=== PATIENT | female | born 1970 | race Caucasian/White ===

== ENCOUNTER 2023-03-18 19:22 | Inpatient (IN) | payer OTHER, SELFPAY ==
--- NOTE | ~2023-03-18 | XR_ITS ---
EXAMINATION: XR chest 1V INDICATION: Neck pain TECHNIQUE: AP view of the chest is obtained. COMPARISON: None available FINDINGS: The lungs are free of acute opacities. No pleural effusion or pneumothorax. The cardiomedia stinal silhouette is normal. IMPRESSION: 1. No acute cardiopulmonary abnormality. Reviewed, dictated and finalized at location F.
--- NOTE | ~2023-03-18 | XR_ITS ---
EXAMINATION:XR cervical spine 4-5V DATE: 03/18/2023 20:20 INDICATION: Neck pain TECHNIQUE: AP, lateral, lateral swimmers and odontoid views of the cervical spine are provided. COMPARISON: None FINDINGS: There are 3 mm of anterolisthesis of C3 on C4 and 2 mm of anterolisthesis of C4 on C5. The odontoid process is intact. No fracture is identified. The vertebral body heights are maintained. The re is at least moderate loss of intervertebral disc space height from C4-5 through C7-T1. There is mu ltilevel severe facet and uncovertebral joint osteoarthritis. There is limited evaluation of the cerv icothoracic junction. Prevertebral soft tissues are normal. IMPRESSION: 1. Moderate to severe cervical spondylosis without acute findings identified. Reviewed, dictated and finalized at location F.
[2023-03-18 19:21] VITALS: BP 167/128; PULSE 96; RESP 24; TEMP 36.4; O2SAT 100
--- NOTE | 2023-03-18 19:31 | ECG_ITS ---
Measurements Intervals [place] Rate: 80 P: 42 AL: 145 QRS: 7 QRSD: 106 T: 25 QT: 373 QTc: 432 Interpretive Statements SINUS RHYTHM NORMAL ECG NO PREVIOUS ECG AVAILABLE FOR COMPARISON Electronically Signed On 03-19-2023 12:39:02 CDT by Romeo Mukherjee M.D.
[2023-03-18] MEDS: HYDROcodone/acetaminophen (*CRX) 5-325 MG TABLET 2 TAB PO (19:48)
[2023-03-18] MEDS: LORazepam INJ (*CRX) 2 MG/ML VIAL 1 MG IV PUSH (19:54)
[2023-03-18 20:03] LABS: Basophils Absolute Auto 0.1 K/mm3 (0.0-0.1); Basophils Percent Auto 0.9 % (0.2-1.2); Eosinophils Absolute Auto 0.3 K/mm3 (0-0.3); Eosinophils Percent Auto 3.9 % (0-4.4); Hematocrit 38.8 % (37.0-47.0); Hemoglobin 12.5 g/dL (12.0-15.0); Immature Granulocyte Absolute 0.02 K/mm3 (0.00-0.031); Immature Granulocyte Percent A 0.2 % (0-0.5); Lymphocytes Absolute Auto 3.16 K/mm3 (0.9-3.2); Lymphocytes Percent Auto 36.7 % (18.3-44.2); Mean Corpuscular HGB Conc 32.2 g/dl (32-36); Mean Corpuscular Hemoglobin 27.5 pg (26-34); Mean Corpuscular Volume 85.3 fl (80-100); Mean Platelet Volume 9.7 fl (7.4-10.4); Monocytes Absolute Auto 0.6 K/mm3 (0.1-0.6); Monocytes Percent Auto 6.7 % (2.6-8.5); Neutrophils Absolute Auto 4.4 K/mm3 (1.3-6.7); Neutrophils Percent Auto 51.6 % (45.5-73.1); Platelet Count Result 270 k/mm3 (150-375); Red Blood Count 4.55 M/mm3 (4.2-5.4); Red Cell Distribution Width 15.4 % (11.5-14.5); White Blood Count 8.6 K/mm3 (4.5-10.0)
[2023-03-18 20:13] LABS: Anion Gap 9 mmol/L (8-16); Blood Urea Nitrogen 11 mg/dL (7-17); Calcium 8.9 mg/dL (8.4-10.2); Carbon Dioxide 27 mmol/L (22-30); Chloride 104 mmol/L (98-107); Estimated CRCL calculation 69 ml/min; Estimated Glomerular Filt Rate > 60; Glucose 101 mg/dL (65-110); INR 0.9; Partial Thromboplastin Time 26.5 SECONDS (22.3-36.8); Potassium 3.7 mmol/L (3.4-5.0); Prothrombin Time 12.8 Seconds (11.1-14.7); Sodium 140 mmol/L (137-145)
[2023-03-18 20:40] VITALS: BP 189/99; PULSE 87; RESP 16; O2SAT 94
[2023-03-18 20:47] VITALS: BP 173/108; PULSE 95; RESP 25; O2SAT 97
[2023-03-18 22:15] LABS: Barbiturate Screen Urine Negative (Negative); Benzodiazepines Screen Urine Negative (Negative)
[2023-03-18 22:16] LABS: Cannabinoid Screen Urine Negative (Negative); Cocaine Screen Urine Negative (Negative); Methadone Screen Urine Negative (Negative); Opiate Screen Urine Negative (Negative); Phencyclidine Screen Urine Negative (Negative)
[2023-03-18 22:42] VITALS: BP 199/117; PULSE 84; RESP 17; O2SAT 98
--- NOTE | 2023-03-18 22:43 | ED.GENADULT ---
HPI - General Adult General Chief complaint: Neck Pain/Injury Stated complaint: Pain Time Seen by Provider: 03/18/23 19:27 History of Present Illness HPI narrative: this is a 52-year-old female presenting ED with a chief complaint of cervical stenosis. Patient has been worked up on an outpatient basis from Dr. Calle. He spoke with 1 of our neurosurgeons . the patient had an outpatient MRI with multiple levels of severe cervical stenosis. The patient has been sent here to be admitted and evaluated by Neurosurgery. This time the patient is complaining of neck and arm pain. She says that she has been having difficulty walking for quite some time. Now she is having difficulty moving her hands. She also has neck and shoulder pain. She denies trauma. no other complaints. Related Data Allergies Allergy/AdvReac Type Severity Reaction Status Date / Time No Known Allergies Allergy Mild Unverified 02/19/15 14:17 [facility] Past Medical History Medical History Bipolar disorder Methamphetamine abuse Family History Family History Mother Cerebrovascular accident Exam Narrative: APPEARANCE: Patient appears anxious and is crying Head: atraumatic. EYES: EOMI, NOSE: Atraumatic NECK: Trachea midline patient is in a C-collar RESPIRATORY: No increased rate of breathing CARDIOVASCULAR: RRR, ABDOMINAL: Non-distended MUSCULOSKELETAl: No obvious deformities NEURO: Alert. Cranial nerves 2-12 grossly intact. strength is intact in the upper lower extremities. SKIN:: Warm, dry. Normal color PSYCHIATRIC: Normal affect Course Vital Signs Vital signs: Vital Signs Temperature 97.6 F 03/18/23 19:21 Pulse Rate 96 03/18/23 19:21 Respiratory Rate 24 H 03/18/23 19:21 Blood Pressure 167/128 H 03/18/23 19:21 Pulse Oximetry 100 03/18/23 19:21 Oxygen Delivery Room Air 03/18/23 19:21 Temperature 97.6 F 03/18/23 19:21 Pulse Rate 95 03/18/23 20:47 Respiratory Rate 25 H 03/18/23 20:47 Blood Pressure 173/108 H 03/18/23 20:47 Pulse Oximetry 97 03/18/23 20:47 Oxygen Delivery Room Air 03/18/23 19:21 Medical Decision Making MDM Narrative Medical decision making narrative: -Presentation: 52-year-old female presenting with neck pain and an outpatient MRI showing severe cervical stenosis. She has been sent to be admitted by Neurosurgery. -DDX includes but is not limited to: Chronic neck pain, cervical stenosis, methamphetamine use -Co-morbidities complicating care: bipolar, meth -Social determinants of health: patient is disabled due to psychiatric illness -External Chart Review: none -Hx from independent Sources: none -Discussion of Management/Consultants: Benjy -hospitalistDr. quintanilla-neurosurgery -Independent interpretation of studies: laboratory studies normal. Dx tests considered but not ordered: None -Procedures: -Interventions: -Shared decision making / Disposition: admitted. -RX Vital Signs Vital Signs: Vital Signs Temperature 97.6 F 03/18/23 19:21 Pulse Rate 96 03/18/23 19:21 Respiratory Rate 24 H 03/18/23 19:21 Blood Pressure 167/128 H 03/18/23 19:21 Pulse Oximetry 100 03/18/23 19:21 Oxygen Delivery Room Air 03/18/23 19:21 Temperature 97.6 F 03/18/23 19:21 Pulse Rate 95 03/18/23 20:47 Respiratory Rate 25 H 03/18/23 20:47 Blood Pressure 173/108 H 03/18/23 20:47 Pulse Oximetry 97 03/18/23 20:47 Oxygen Delivery Room Air 03/18/23 19:21 Lab Data 03/18/23 19:56 03/18/23 19:56 Labs: Lab Results 03/18/23 03/18/23 Range/Units 19:56 21:44 WBC 8.6 (4.5-10.0) K/mm3 RBC 4.55 (4.2-5.4) M/mm3 Hgb 12.5 (12.0-15.0) g/dL Hct 38.8 (37.0-47.0) % MCV 85.3 (80-100) fl MCH 27.5 (26-34) pg MCHC 32.2 (32-36) g/dl RDW 15.4 H (11.5-14.5
[2023-03-18 23:01] LABS: Amphetamine Screen Urine Positive (Negative)
--- NOTE | 2023-03-18 23:25 | PM.IMHP ---
H&P: HPI History of Present Illness Date/Time: 03/19/23 00:25 Chief Complaint: Cervical stenosis Narrative: 52-year-old female with past medical history of bipolar disorder, anxiety, chronic pain and cervical stenosis who presented to [facility] for outpatient MRI. MRI demonstrated severe cervical stenosis and the patient's outpatient orthopedic surgeon Dr. Flores contacted Dr. Paulino from Neurosurgery regarding the patient's case. Patient reports that she has been having about 6-8 weeks of worsening neck pain and numbness in her fingers. She denies any weakness of her hands. She has been having difficulty walking since proximally 2018 but is worsened in the last 6 months or so. She ambulates with a walker. She denies any acute trauma or injury of her neck. But she reports she has chronic spinal stenosis of her lower spine with bone spurs. She has [id number] osteoarthritis of her right hip per her report. She does have a history of chronic methamphetamine abuse in snorts methamphetamines every couple of days. She reported that she started using meth to help manage her pain but states that the mass has not helped her pain. She last used meth 5 hours before coming to the ER. She denies any other illicit substance use. She does smoke a pack of cigarettes per day and has done so since she was a teenager. She was having difficulty with chronic constipation but has not had issues with chronic constipation in the last 6 months to a year. She denies any bowel or bladder incontinence. She denies any dysuria hematochezia or melena. She does have frequent abdominal cramping and bloating. She denies history of GI bleed. She does have a history of previously treated hepatitis C. she reports that her worse the amount of pain right now is in her right hip. She did arrived to the hospital with a disc of her MRI findings but I was unable to get the disc open on the computer that I can access. In the ER the patient received [place] and lorazepam. The patient reports that these did not help with her symptoms. The patient is noted to me having pressured speech and is sweating a. She states that she sweats all the time even when she does not use meth. She reports that she has been unable to bathe for the last 2 weeks due to her symptoms. She has lived with a friend for about a year. She has 3 children but 2 of them were raised by the other parent. She has 1 daughter who is 32. Her brother has disowned her. Her parents are . She does not have much in the way of social support. She denies any other illicit substance use. She denies alcohol use. Review of Systems Review of Systems: 12 systems were reviewed with pertinent positives and negatives per HPI. Except as documented in the HPI, all other systems were reviewed and are negative. [facility] Past Medical History Medical History (Updated 03/19/23 @ 01:03 by Nevin Burelson DO) Bipolar disorder Continuous tobacco abuse Degenerative disc disease Hepatitis C Previously treated Infected decubitus ulcer (~2017) Kidney stones Methamphetamine abuse Pulmonary embolism Resulting in cardiac arrest in 2017 Surgical History Surgical History (Updated 03/19/23 @ 00:39 by Nevin Burleson DO) H/O section X2 Hx of cholecystectomy Family History Family History (Updated 03/19/23 @ 00:50 by Nevin Burleson DO) Mother , at age 62 Cerebrovascular accident Lung cancer Father , He in his mid 40's GI bleed Sibling Lung cancer, Onset Age: 50 Social History Social History (Updated 03/19/23 @ 00:51 by Nevin Burleson DO) Social History: She has been on disability for her bipolar disorder since 2018. She lives with a friend since 2021. She had 3 children but only raised 1 daughter who is now 32 years old. She is estranged from her only living brother. She has smoked a pack of cigarettes per day since she
[2023-03-18 23:35] VITALS: BP 185/108; PULSE 93; RESP 15; TEMP 36.9; O2SAT 98
[2023-03-18 23:54] VITALS: BP 174/93; PULSE 95; RESP 22; TEMP 36.3; O2SAT 99
[2023-03-19 00:46] VITALS: BMI 32.9
--- NOTE | 2023-03-19 00:50 | PC.NURSE ---
This patient, Elsy Wesley, was admitted to Medical Room 347-. Patient/family oriented to hospital policies and general routines including ID bracelet, bed and alarms, visiting hours, pain management, procedures, bathroom and other care routines, personal items, smoking policy, room service/diet, and visiting hours. Information on how to activate the Rapid Response Team has been discussed. Patient/Family are encouraged to report perceived risks to care and to ask questions if they do not understand what they are told or what they should do.
[2023-03-19] MEDS: QUEtiapine FUMARATE XR 200 MG TAB.ER.24H 400 MG PO (01:05)
[2023-03-19] MEDS: hydrOXYzine pamoate 25 MG CAPSULE PO (01:05)
[2023-03-19] MEDS: HYDROcodone/acetaminophen (*CRX) 10-325 MG TABLET 1 TAB PO ×3 (02:07→16:13)
[2023-03-19] MEDS: LORazepam (*CRX) 1 MG TABLET PO ×3 (04:57→16:14)
[2023-03-19] MEDS: HEPARIN SODIUM 5,000 UNITS/ML VIAL 5000 UNITS SUB-Q (04:59)
[2023-03-19 05:01] VITALS: BP 164/93; PULSE 85; RESP 18; TEMP 36.5; O2SAT 99
[2023-03-19] MEDS: buPROPion HCL XL (24 HR) 150 MG TABCR PO (08:50)
[2023-03-19 09:33] LABS: Hematocrit 35.8 % (37.0-47.0); Hemoglobin 11.5 g/dL (12.0-15.0); Mean Corpuscular HGB Conc 32.1 g/dl (32-36); Mean Corpuscular Hemoglobin 27.1 pg (26-34); Mean Corpuscular Volume 84.4 fl (80-100); Mean Platelet Volume 9.4 fl (7.4-10.4); Platelet Count Result 234 k/mm3 (150-375); Red Blood Count 4.24 M/mm3 (4.2-5.4); Red Cell Distribution Width 15.3 % (11.5-14.5); White Blood Count 7.3 K/mm3 (4.5-10.0)
--- NOTE | 2023-03-19 11:05 | PM.IMPN ---
Progress Note: A&P Assessment and Plan (1) Cervical stenosis of spinal canal: Code(s): M48.02 - Spinal stenosis, cervical region Status: Acute Assessment and Plan: Patient has severe cervical stenosis. Neurosurgery has been consulted. [place] 10/325 has been ordered for pain. Cervical collar has been placed since before the patient arrived to the ER. Neurosurgery recommending transfer to [facility] for surgery due to more Anesthesiology and ICU support which may be needed due to patient's chronic methamphetamine abuse. Called over to [facility] and Dr. Perez (hospitalist) has accepted the patient for transfer for Dr. Kearns to perform surgery. (2) Methamphetamine intoxication: Code(s): F15.929 - Other stimulant use, unspecified with intoxication, unspecified Status: Acute Assessment and Plan: Patient is acutely intoxicated with methamphetamines. Urine drug screen confirm that the patient has not been using any narcotics S supported by her report. Will provide Ativan as needed for psychomotor agitation. (3) Bipolar disorder: Qualifiers: Active/Remission status: currently active Current bipolar episode type: manic Current episode severity: moderate Qualified Code(s): F31.12 - Bipolar disorder, current episode manic without psychotic features, moderate Code(s): F31.9 - Bipolar disorder, unspecified Status: Acute Assessment and Plan: Patient has bipolar appears to be in active phase. Will resume the patient's home antipsychotics and still lytics and antidepressants. Patient denies any suicidal homicidal ideation. (4) Continuous tobacco abuse: Code(s): Z72.0 - Tobacco use Status: Acute Assessment and Plan: The patient is not interested in tobacco cessation education. She does want a nicotine patch while she is hospitalized since she cannot smoke. Plan Patient does have a prior history of DVTs resulting in cardiac arrest per her report (2017). DVT prophylaxis with heparin just in case it is decided that the patient needs more urgent surgical intervention. Subjective Date/time seen: 03/19/23 11:05 Interval history: Patient doing well sitting up in bed with hard neck brace on. Patient continued to have chronic right hip pain that has caused her to become and mobile as well as numbness and tingling radiating down the bilateral arms. Neurosurgery recommending transfer to a higher acuity care hospital due to patient's methamphetamine abuse. She could require more anesthesiology/ ICU support. Called over to [facility] and they have accepted the patient for transfer. Review of Systems Review of Systems: All systems reviewed & are unremarkable except as noted in HPI and below Exam Narrative: GENERAL: Comfortable, no acute distress HENMT: moist mucous membranes EYES: EOM intact b/l NECK: no lymphadenopathy RESPIRATORY: clear to auscultation CARDIO: RRR GI: soft, nontender, bowel sounds present SKIN: no rashes EXTREMITIES: no edema, redness or tenderness; Bilateral upper extremity configuration manager strength 4/5 Objective Data Vital Signs Vital Signs: Vital Signs - 24 hr 03/18/23 19:21 03/18/23 20:40 03/18/23 20:47 Temperature 97.6 F Pulse Rate 96 87 95 Respiratory Rate 24 H 16 25 H Blood Pressure 167/128 H 189/99 H 173/108 H Pulse Oximetry 100 94 97 Oxygen Delivery Room Air 03/18/23 22:42 03/18/23 23:35 03/18/23 23:54 Temperature 98.5 F 97.4 F L Pulse Rate 84 93 95 Respiratory Rate 17 15 22 H Blood Pressure 199/117 H 185/108 H 174/93 H Pulse Oximetry 98 98 99 Oxygen Delivery 03/19/23 00:41 03/19/23 05:01 03/19/23 08:00 Temperature 97.7 F Pulse Rate 85 Respiratory Rate 18 Blood Pressure 164/93 H Pulse Oximetry 99 Oxygen Delivery Room Air Room Air Intake/Output Intake/Output: Intake & Output 03/16/23 03/17/23 03/18/23 03/19/23 23:59 23:59 23:5
[2023-03-19 11:15] LABS: Alanine Aminotransferase 22 U/L (6-35); Albumin Level 3.8 g/dL (3.5-5.1); Alkaline Phosphatase 87 U/L (38-126); Anion Gap 6 mmol/L (8-16); Aspartate Amino Transferase 29 U/L (14-36); Bilirubin,Total 0.5 mg/dL (0.2-1.3); Blood Urea Nitrogen 10 mg/dL (7-17); Calcium 8.6 mg/dL (8.4-10.2); Carbon Dioxide 24 mmol/L (22-30); Chloride 105 mmol/L (98-107); Estimated CRCL calculation 65 ml/min; Estimated Glomerular Filt Rate > 60; Glucose 136 mg/dL (65-110); Potassium 3.6 mmol/L (3.4-5.0); Sodium 135 mmol/L (137-145)
--- NOTE | 2023-03-19 12:29 | WPDNEUROSGCN ---
Assessment and Plan Assessment and plan (1) Cervical myelopathy: Code(s): G95.9 - Disease of spinal cord, unspecified Status: Acute (2) Methamphetamine intoxication: Code(s): F15.929 - Other stimulant use, unspecified with intoxication, unspecified Status: Acute (3) Cervical stenosis of spinal canal: Code(s): M48.02 - Spinal stenosis, cervical region Status: Acute Plan Ms. Wesley is a 52-year-old female with history of hepatitis-C, bipolar disorder, and methamphetamine use who has had 6 months of progressive walking difficulty and balance problems as well as 4-6 weeks of pain and numbness in her upper extremities, difficulty gripping objects, and urinary retention who was found to have significant cervical stenosis on an MRI cervical spine performed as an outpatient. She was sent to the ER on the advice of her orthopedic surgeon who ordered the imaging. On physical exam, she is frankly myelopathic. We have not yet been able to upload her outside imaging, but I was able to see a photograph taken of the sagittal MRI that shows significant stenosis at C3-4 in particular with T2 cord signal change. There also appears to be stenosis at C4-5 and C5-6. She ultimately will need surgery for this; however, because of her meth use yesterday, she will need to be off of this for at least 1 week to be cleared from an anesthesia standpoint. I spoke with 1 of the anesthesiologists [place] this morning who thinks that this may be too medically complex to be treated at [place]. I have spoken with the showcase trimmer and her hospitalist about transferring to an alternative facility. She is been accepted at [facility] for transfer this weekend. I will work on getting her scheduled for surgery but I am awaiting the imaging to be uploaded to decide on the form of surgery. I suspect this will most likely be in the form of a posterior cervical decompression and fusion. We will likely also need cardiac and anesthesia clearance once she arrives at [facility]. She has been taking a baby aspirin up until this point which will need to be held for at least 1 week as well prior to surgery. I discussed with her the significance of her pathology and the importance that she remains drug-free so that she can undergo surgery. I also discussed with her the importance of tobacco cessation to allow for the best chances of healing and bony fusion. She expressed understanding of this to me. I will await for her transfer to [facility]. Consult date: 03/19/23 HPI: Elsy Wesley is a 52 year old female with history of bipolar disorder, PE, Hep C, meth use who presented to the ER yesterday at the suggestion of her orthopedic doctor, Dr. Calle, for findings on her MRI cervical spine that was performed as an outpatient. For the last 6 months or so, she has had progressive difficulty with walking and balance to the point of requiring a walker the last 2 weeks. For the last 4-6 weeks, she reports radicular pain and numbness in her arms and hands. She has had weakness of her hands and has been dropping objects for this same amount of time. She also reports urinary retention. She had seen Dr. Calle for right hip pain; he was concerned for cervical myelopathy and sent her for MRI cervical spine. Of note, she had a cardiac arrest in 2017 which she states was related to pulmonary emboli. She only takes an aspirin daily at this point. She uses meth on a regular basis which she snorts. She denies IV drug use. She smokes 1 PPD since she was a teenager. She currently lives with a friend in [place]. She is on disability because of her mental health issues. Review of Systems Review of Systems: All systems reviewed & are unremarkable except as noted in HPI and below [facility] Past Medical History Medical History (Updated 03/19/23 @ 12:37 by Marisol Kearns MD) Bipolar disorder Continuous tobacco abuse Degenerative disc disease Hepatitis C Previously
--- NOTE | 2023-03-19 14:02 | PC.NURSE ---
Call made to Dr. Kearns to inform her of transfer to [facility]. Bed is available and will be sent today.
[2023-03-19 14:50] VITALS: O2SAT 98
--- NOTE | 2023-03-19 15:19 | PM.TDS ---
Transfer Discharge Sum: Prov Provider Date of admission: 03/18/23 22:49 Primary care physician: NON DESTRUCTIVE EVALUATION TECHNICIAN PHYSICIAN Admitting clinician: Nevin Burleson DO Consults: 03/19/23 08:31 Consult to Physician Routine Comment: Consulting Provider: Marisol Kearns greens picker/MD group to consult: Dr. Kearns saw pt this am. 03/19/23 Reason for consultation: servere cervical stenosis Has provider been notified: Yes DS: Admitting Diagnosis Discharge Date 03/19/23 Admitting Diagnosis Severe cervical stenosis DS: Discharge Diagnosis Discharge Diagnosis (1) Cervical stenosis of spinal canal: Code(s): M48.02 - Spinal stenosis, cervical region Status: Acute Assessment and Plan: Patient has severe cervical stenosis. Neurosurgery has been consulted. [place] 10/325 has been ordered for pain. Cervical collar has been placed since before the patient arrived to the ER. Neurosurgery recommending transfer to [facility] for surgery due to more Anesthesiology and ICU support which may be needed due to patient's chronic methamphetamine abuse. Called over to [facility] and Dr. Perez (hospitalist) has accepted the patient for transfer for Dr. Kearns to perform surgery. (2) Methamphetamine intoxication: Code(s): F15.929 - Other stimulant use, unspecified with intoxication, unspecified Status: Acute Assessment and Plan: Patient is acutely intoxicated with methamphetamines. Urine drug screen confirm that the patient has not been using any narcotics S supported by her report. Will provide Ativan as needed for psychomotor agitation. (3) Bipolar disorder: Qualifiers: Active/Remission status: currently active Current bipolar episode type: manic Current episode severity: moderate Qualified Code(s): F31.12 - Bipolar disorder, current episode manic without psychotic features, moderate Code(s): F31.9 - Bipolar disorder, unspecified Status: Acute Assessment and Plan: Patient has bipolar appears to be in active phase. Will resume the patient's home antipsychotics and still lytics and antidepressants. Patient denies any suicidal homicidal ideation. (4) Continuous tobacco abuse: Code(s): Z72.0 - Tobacco use Status: Acute Assessment and Plan: The patient is not interested in tobacco cessation education. She does want a nicotine patch while she is hospitalized since she cannot smoke. Plan Patient does have a prior history of DVTs resulting in cardiac arrest per her report (2017). DVT prophylaxis with heparin just in case it is decided that the patient needs more urgent surgical intervention. Transfer Discharge Sum: Med Medications Active and Home Medications: Home Medications aspirin 81 mg tablet,delayed release 81 mg PO DAILY 03/19/23 [History Confirmed 03/19/23] bupropion HCl 150 mg 24 hr tablet, extended release (Wellbutrin XL) 150 mg PO DAILY 03/19/23 [History Confirmed 03/19/23] fluvoxamine 150 mg capsule,extended release 24 hr 150 mg PO HS 03/19/23 [History Confirmed 03/19/23] hydroxyzine pamoate 25 mg capsule 25 mg PO HS 03/19/23 [History Confirmed 03/19/23] quetiapine 400 mg tablet,extended release 24 hr (Seroquel XR) 400 mg PO HS 03/19/23 [History Confirmed 03/19/23] Active Medications Hydrocodone Bitart/Acetaminophen (Hydrocodone/Acetaminophen (*Crx) 10-325 Mg Tablet) 1 tab PO Q6H PRN PRN Reason: Pain Rated 7-10 Last Admin: 03/19/23 08:55 Dose: 1 tab Bupropion HCl (Bupropion Hcl Xl (24 Hr) 150 Mg Tabcr) 150 mg PO DAILY [facility] Last Admin: 03/19/23 08:50 Dose: 150 mg Heparin Sodium (Porcine) (Heparin Sodium 5,000 Units/Ml Vial) 5,000 units SUB-Q Q8HR [facility] Last Admin: 03/19/23 04:59 Dose: 5,000 units Hydroxyzine Pamoate (Hydroxyzine Pamoate 25 Mg Capsule) 25 mg PO HS [facility] Last Admin: 03/19/23 01:05 Dose: 25 mg Lorazepam (Lorazepam (*Crx) 1 Mg Tablet) 1 mg PO Q4H PRN PRN Reason: Anxie
--- NOTE | 2023-03-19 17:19 | PC.NURSE ---
Report given to Marlee at [facility]. Pt to room 2406. [facility].
== END 2023-03-19 17:22 | disposition short-term general hospital (02) | DRG 347 ==
LOC: ANHED 22:48 → ANH3MED 23:24
PROVIDERS: Admitting Provider Internal Medicine; Emergency Provider Emergency Medicine; Visit Provider Internal Medicine Critical Care Medicine
DX: M48.02 Spinal stenosis, cervical region (principal); F15.929 Other stimulant use, unspecified with intoxication, unspecified; F31.9 Bipolar disorder, unspecified; F41.9 Anxiety disorder, unspecified; F17.210 Nicotine dependence, cigarettes, uncomplicated; G89.29 Other chronic pain; M16.11 Unilateral primary osteoarthritis, right hip; Z86.711 Personal history of pulmonary embolism; Z90.49 Acquired absence of other specified parts of digestive tract; Z79.82 Long term (current) use of aspirin; Z86.19 Personal history of other infectious and parasitic diseases
CPT/HCPCS: 36415; 71045; 72050; 80048; 80053; 80307; 85025; 85027; 85610; 85730; 93005; 96374; 99285; A9270; J1644; J2060

== ENCOUNTER 2023-07-30 14:12 | Outpatient (CLI) | payer OTHER, SELFPAY ==
--- NOTE | ~2023-07-30 | XR_ITS ---
EXAMINATION:XR_CERV2-3V_CR DATE: 07/30/2023 14:36 INDICATION: Neck pain TECHNIQUE: AP, lateral, lateral swimmers and odontoid views of the cervical spine are provided. COMPARISON: 03/18/2023 FINDINGS: There are changes of interval laminectomy and posterior fusion from C3 through C6. There ar e 3 mm of anterolisthesis of C3 on C4 and 2 mm of anterolisthesis of C4 on C5. The odontoid process i s intact. No fracture is identified. The vertebral body heights are maintained. Moderate loss of inte rvertebral disc space height is again noted from C4-5 through C7-T1. Small degenerative osteophytes p roject from the anterior endplates of multiple vertebral bodies. There is multilevel severe facet and uncovertebral joint osteoarthritis. Prevertebral soft tissues are normal. IMPRESSION: 1. Changes of interval laminectomy and posterior fusion from C3 through C6 without acute osseous abno rmality. Moderate to severe cervical spondylosis. Reviewed, dictated and finalized at location F. IMPRESSION: 1. Changes of interval laminectomy and posterior fusion from C3 through C6 with out acute osseous abnormality. Moderate to severe cervical spondylosis.
== END 2023-07-30 14:13 | disposition home or self-care (01) ==
PROVIDERS: PCP Internal Medicine; Visit Provider Neurological Surgery
DX: G95.9 Disease of spinal cord, unspecified (principal); M48.02 Spinal stenosis, cervical region; Z98.1 Arthrodesis status
CPT/HCPCS: 72040

== ENCOUNTER 2023-08-03 11:27 | Emergency (ER) | payer OTHER, SELFPAY ==
--- NOTE | ~2023-08-03 | CT_ITS ---
Non-contrast Head CT History: Head injury Technique: Axial non-contrast imaging of the brain was performed. Dose reduction technique was used on this scan by utilizing automated exposure control and iterative reconstruction technique. The dose -length product (DLP) was 605.33 mGy-cm. Findings: There is no evidence of intracranial hemorrhage, mass lesion, or acute infarct. Brain par enchyma appears normal. The ventricles and subarachnoid spaces are normal in size. The calvarium ap pears normal. The visualized paranasal sinuses and mastoid air cells are clear. Impression: No significant abnormality seen. Reviewed, dictated and finalized at location . Impression: No significant abnormality seen.
--- NOTE | ~2023-08-03 | CT_ITS ---
Noncontrast CT scan of the cervical spine Technique: Multiple contiguous axial [address] images of the cervical spine were obtained and rec onstructed in 2D sagittal and coronal planes on the acquisition scanner. Dose reduction technique was used on this scan by utilizing automated exposure control, adjustment of the mA and/or kV according to patient size. The dose-length product (DLP) was 605.33 mGy-cm. Clinical History: Pain Findings: No fracture or subluxation evident. There is mild reversal of the normal cervical lordosis. There is posterior fusion hardware extending from C3 through C6, bilateral rods and transpedicular s crews present. There is posterior decompression from C3 through C6. There is probable bilateral neural foraminal narrowing at C2-C3, with prominent facet arthropathy/hyp ertrophy. There is probable mild bilateral neural foraminal narrowing at C3-C4 with facet hypertrophy . There is bilateral neural foraminal narrowing at C4-C5 and C5-C6, with bilateral facet hypertrophy. There is bilateral neural foraminal narrowing at C6-C7, with facet hypertrophy. No prevertebral soft tissue swelling. Impression: No fracture or subluxation of the cervical spine. Posterior fusion and decompression from C3 through C6, as detailed above. Multilevel neural foraminal narrowing throughout the cervical spine. Reviewed, dictated and finalized at [facility]. Impression: No fracture or subluxation of the cervical spine. Posterior fusion and decompression from C3 through C6, as detailed above. Multilevel neural foraminal narrowing throughout the cervical spine.
[2023-08-03 11:31] VITALS: BP 139/87; PULSE 75; RESP 20; TEMP 36.5; O2SAT 100
--- NOTE | 2023-08-03 12:55 | ED.FALL ---
HPI - Fall General Chief Complaint: Fall <Violeta Quezada PA-C - Last Filed: 08/03/23 18:21> Stated Complaint: fall <Violeta Quezada PA-C - Last Filed: 08/03/23 18:21> Time Seen by Provider: 08/03/23 13:08 <MARIAM Painting Last Filed: 08/03/23 18:21> Source: patient <MARIAM Painting Last Filed: 08/03/23 18:21> Mode of arrival: wheelchair <MARIAM Painting Last Filed: 08/03/23 18:21> Limitations: no limitations <Violeta Quezada PA-C - Last Filed: 08/03/23 18:21> History of Present Illness HPI Narrative: This is a 53-year-old female that presents to the emergency department after head injury today. Reports she was trying to get out of bed, reports she was still little sleepy. She accidentally fell and hit her head on the bedpost. Reports that she has had a headache and some neck pain. She did not lose consciousness. Denies visual changes, vomiting, numbness, or weakness. <MARIAM Painting Last Filed: 08/03/23 18:21> Related Data Home Medications: Home Medications Medication Instructions Recorded Confirmed aspirin 81 mg tablet,delayed 81 mg PO DAILY 03/19/23 03/19/23 release acetaminophen 650 mg 650 mg PO BID 07/29/23 tablet,extended release bisacodyl 5 mg tablet,delayed 10 mg PO DAILY 07/29/23 release bupropion HCl 150 mg tablet,12 hr 150 mg PO DAILY 07/29/23 sustained-release clonazepam 0.5 mg tablet 0.5 mg PO BID 07/29/23 cyclobenzaprine 10 mg tablet 10 mg PO TID PRN 07/29/23 docusate sodium 100 mg capsule 100 mg PO BID 07/29/23 (Colace) fluvoxamine 50 mg tablet 150 mg PO DAILY 07/29/23 hydrocodone 5 mg-acetaminophen 325 1 tablet PO BID 07/29/23 mg tablet lidocaine 5 % topical patch 1 patch topical DAILY 07/29/23 naproxen 250 mg tablet 250 mg PO Q12H 10/19/23 polyethylene glycol 3350 17 17 g PO DAILY PRN 07/29/23 gram/dose oral powder pregabalin 75 mg capsule 75 mg PO BID 07/29/23 quetiapine 100 mg tablet 200 mg PO BID 07/29/23 trazodone 50 mg tablet 25 mg PO QHS PRN 07/29/23 <Violeta Quezada PA-C - Last Filed: 08/03/23 18:21> Allergies/Adverse Reactions: Allergies Allergy/AdvReac Type Severity Reaction Status Date / Time No Known Allergies Allergy Mild Verified 07/29/23 15:21 <Violeta Quezada PA-C - Last Filed: 08/03/23 18:21> Review of Systems Review of Systems: CONSTITUTIONAL: Denies fever EYES: Denies visual changes GASTROINTESTINAL: Denies vomiting MUSCULOSKELETAL: Reports joint pain, and myalgia. NEUROLOGIC: Reports headache. Denies numbness, or weakness. <MARIAM Painting Last Filed: 08/03/23 18:21> All systems reviewed & are unremarkable except as noted in HPI and below <Violeta Quezada PA-C - Last Filed: 08/03/23 18:21> [facility] Past Medical History Medical History: Medical History Bipolar disorder Continuous tobacco abuse Degenerative disc disease Hepatitis C Previously treated Infected decubitus ulcer (~2017) Kidney stones Methamphetamine abuse Pulmonary embolism Resulting in cardiac arrest in 2017 <Violeta Quezada PA-C - Last Filed: 08/03/23 18:21> Surgical History Surgical History: Surgical History H/O section X2 Hx of cholecystectomy <MARIAM Painting Last Filed: 08/03/23 18:21> Family History Family History: Family History Mother , at age 62 Cerebrovascular accident Lung cancer Father , He in his mid 40's GI bleed Sibling Lung cancer, Onset Age: 50 <MARIAM Painting Last Filed: 08/03/23 18:21> Social History Social History: Social History Social History: She has been on disability for her bipolar disorder [facility]
[2023-08-03 13:55] VITALS: O2SAT 96
[2023-08-03 13:56] VITALS: BP 132/94; O2SAT 96
[2023-08-03 14:00] VITALS: BP 126/86; O2SAT 95
[2023-08-03 14:01] VITALS: O2SAT 96
[2023-08-03 14:15] VITALS: BP 135/80; PULSE 78; RESP 16; O2SAT 95
[2023-08-03] MEDS: ACETAMINOPHEN 500 MG TABLET 1000 MG PO (14:15)
[2023-08-03] MEDS: CYCLOBENZAPRINE HCL 10 MG TABLET PO (14:18)
== END 2023-08-03 14:54 | disposition home or self-care (01) ==
PROVIDERS: Emergency Provider Emergency Medicine; PCP Internal Medicine
DX: S09.90XA Unspecified injury of head, initial encounter (principal); S16.1XXA Strain of muscle, fascia and tendon at neck level, initial encounter; F17.210 Nicotine dependence, cigarettes, uncomplicated; F31.9 Bipolar disorder, unspecified; Z86.711 Personal history of pulmonary embolism; W06.XXXA Fall from bed, initial encounter
CPT/HCPCS: 70450; 72125; 99284; A9270

== ENCOUNTER 2023-12-06 10:05 | Outpatient (CLI) | payer OTHER, SELFPAY ==
--- NOTE | ~2023-12-06 | XR_ITS ---
EXAMINATION:XR_[id number]_CR DATE: 12/06/2023 10:21 INDICATION: Neck pain TECHNIQUE: AP, lateral, and odontoid views of the cervical spine are provided. COMPARISON: 07/30/2023 FINDINGS: Again noted are changes of laminectomy and posterior fusion from C3 through C6. There are 3 mm of unchanged anterolisthesis of C3 on C4 and 2 mm of unchanged anterolisthesis of C4 on C5. The o dontoid process is intact. No fracture is identified. The vertebral body heights are maintained. Ther e is moderate loss of intervertebral disc space height from C4-5 through C7-T1. Small degenerative os teophytes project from the anterior endplates of multiple vertebral bodies. There is multilevel sever e facet and uncovertebral joint osteoarthritis. Prevertebral soft tissues are normal. IMPRESSION: 1. Stable changes of posterior fusion and laminectomy from C3 through C6 and stable moderate to sever e cervical spondylosis. No acute findings. Reviewed, dictated and finalized at location B. [employer] IMPRESSION: 1. Stable changes of posterior fusion and laminectomy from C3 through C6 and st able moderate to severe cervical spondylosis. No acute findings.
== END 2023-12-06 10:06 | disposition home or self-care (01) ==
LOC: ANHIMG 10:06
PROVIDERS: PCP Internal Medicine; Visit Provider Neurological Surgery
DX: G95.9 Disease of spinal cord, unspecified (principal); M48.02 Spinal stenosis, cervical region; Z98.1 Arthrodesis status
CPT/HCPCS: 72040

== ENCOUNTER 2024-09-26 19:06 | Emergency (ER) | payer OTHER, SELFPAY ==
--- NOTE | ~2024-09-26 | XR_ITS ---
EXAMINATION: XR chest 1V DATE: 09/26/2024 22:27 INDICATION: Pneumonia. TECHNIQUE: A single frontal view of the chest was obtained. COMPARISON: Chest single view 03/18/2023 FINDINGS: There is no pneumonia, pleural effusion, or pneumothorax. The heart size is normal. There a re changes of posterior fusion procedure in cervical spine. IMPRESSION: 1. No acute cardiopulmonary disease. Reviewed, dictated and finalized at location A. [employer]
[2024-09-26 19:12] VITALS: BP 133/98; PULSE 92; RESP 15; TEMP 37.1; O2SAT 99
[2024-09-26 21:38] VITALS: BP 137/99; PULSE 88; RESP 16; TEMP 37.1; O2SAT 97
[2024-09-26 22:18] LABS: Influenza A QL RT-PCR Negative (Negative); Influenza B QL RT-PCR Negative (Negative); RSV RNA, RT-PCR Negative (Negative); SARS-CoV-2 RNA PCR Negative (Negative)
--- NOTE | 2024-09-26 22:19 | ED_ITS ---
HPI - URI/Sore Throat General Chief Complaint: Upper Respiratory Infection Stated Complaint: chills, flushed Time Seen by Provider: 09/26/24 22:01 Source: patient Mode of arrival: ambulatory Limitations: no limitations History of Present Illness HPI Narrative: This is a 54-year-old female with PMH of bipolar, meth abuse, hep C, PE who presents to the ED via EMS from senior living for chief complaint of chills and feeling flushed for the past day. Patient denies any other symptoms. Denies abdominal pain, nausea, vomiting, diarrhea, chest pain, shortness of breath, cough, sore throat, congestion, ear pain, syncope, lightheadedness. She would like to rule out pneumonia States she has right hip pain which is chronic. She receives Delphia every 6 hours as needed for osteoarthritis. Related Data Home Medications ?Medication ?Instructions ?Recorded ?Confirmed ?Last Taken ?Type aspirin 81 mg tablet,delayed 81 mg PO DAILY 03/19/23 03/19/23 Unknown History release acetaminophen 650 mg 650 mg PO BID 07/29/23 Unknown History tablet,extended release bisacodyl 5 mg tablet,delayed 10 mg PO DAILY 07/29/23 Unknown History release bupropion HCl 150 mg tablet,12 hr 150 mg PO DAILY 07/29/23 Unknown History sustained-release clonazepam 0.5 mg tablet 0.5 mg PO BID 07/29/23 Unknown History cyclobenzaprine 10 mg tablet 10 mg PO TID PRN 07/29/23 Unknown History docusate sodium 100 mg capsule 100 mg PO BID 07/29/23 Unknown History (Colace) fluvoxamine 50 mg tablet 150 mg PO DAILY 07/29/23 Unknown History hydrocodone 5 mg-acetaminophen 325 1 tablet PO BID 07/29/23 Unknown History mg tablet lidocaine 5 % topical patch 1 patch topical DAILY 07/29/23 Unknown History naproxen 250 mg tablet 250 mg PO Q12H 07/29/23 Unknown History polyethylene glycol 3350 17 17 g PO DAILY PRN 07/29/23 Unknown History gram/dose oral powder pregabalin 75 mg capsule 75 mg PO BID 07/29/23 Unknown History quetiapine 100 mg tablet 200 mg PO BID 07/29/23 Unknown History trazodone 50 mg tablet 25 mg PO QHS PRN 07/29/23 Unknown History Allergies Allergy/AdvReac Type Severity Reaction Status Date / Time No Known Allergies Allergy Mild Verified 09/26/24 19:08 Review of Systems Review of Systems: All systems as dictated in [facility] Past Medical History Medical History Bipolar disorder Continuous tobacco abuse Degenerative disc disease Hepatitis C Previously treated Infected decubitus ulcer (~2017) Kidney stones Methamphetamine abuse Pulmonary embolism Resulting in cardiac arrest in 2017 Surgical History Surgical History H/O section X2 Hx of cholecystectomy Family History Family History Mother , at age 62 Cerebrovascular accident Lung cancer Father , He in his mid 40's GI bleed Sibling Lung cancer, Onset Age: 50 Social History Social History Social History: She has been on disability for her bipolar disorder since 2018. She lives with a friend since 2021. She had 3 children but only raised 1 daughter who is now 32 years old. She is estranged from her only living brother. She has smoked a pack of cigarettes per day since she was 18. She denies any alcohol use. She does snore at methamphetamines every couple of days. She denies any narcotic abuse. Code status: Full code She does not have advanced directives in place. Her daughter would be her surrogate decision maker. Smoking packs per day: 1 Smoking cigarettes per day: 20.0 Years smoked: 35 Smoking pack-years: 35.00 Smoking status: Current every day smoker Alcohol intake: never Substance use: current Substance use type: methamphetamine Do You Feel Safe in your Home?: Yes Lack of Transportation: No Lack of Food: Never True Current Housing: I Have Housing Concerned About Future Housing: No Difficulty Paying Gas/Electric Bills: No Difficulty Paying for Meds: No Currently Unemployed: No Education: High School Diploma/GED Difficulty w/ Childcare or Family Care: No Spiritual care concerns: No Exam Narrative: GENERAL: Well-appearing, well-nourished, and in no acute distress. HEAD: Normocephalic, atraumatic. EYES: PERRLA and EOMI. ENT: Nares clear, no rhinorrhea or epistaxis. Mucous membranes moist. Oropharynx without tonsillar hypertrophy exudate or other lesions. NECK: Supple. No adenopathy or masses. CHEST: No respiratory distress. Clear to auscultation. No wheezes rales or rhonchi HEART: Regular rate and rhythm. No murmur heard. Normal peripheral pulses. ABDOMEN: Soft, nontender, nondistended, normal active bowel sounds. MSK: Normal range of motion. No edema. SKIN: Warm, dry, no rash. NEURO: Alert and oriented x4. No focal deficits. PSYCH: Normal mood and affect. Course Vital Signs Vital signs: Vital Signs Temperature 98.8 F 09/26/24 19:12 Pulse Rate 92 09/26/24 19:12 Respiratory Rate 15 09/26/24 19:12 Blood Pressure 133/98 H 09/26/24 19:12 Pulse Oximetry 99 09/26/24 19:12 Oxygen Delivery Room Air 09/26/24 19:12 Temperature 98.7 F 09/26/24 21:38 Pulse Rate 88 09/26/24 21:38 Respiratory Rate 16 09/26/24 21:38 Blood Pressure 137/99 H 09/26/24 21:38 Pulse Oximetry 97 09/26/24 21:38 Oxygen Delivery Room Air 09/26/24 21:38 MDM - URI/Sore Throat MDM Narrative Medical decision making narrative: This is a 54-year-old female who presents to the ED for subjective fevers and chills. She wants to rule out pneumonia. Vitals are normal. Exam is benign. Chest x-ray is negative. Viral swabs are negative. Patient was given her Delphia for her chronic hip pain here. Patient will be discharged in stable condition. Supportive measures discussed and return precautions given. Patient is understanding and agreeable with plan for discharge with PCP follow-up. Lab Data Labs: Lab Results 09/26/24 Range/Units 21:32 Influenza A (RT-PCR) Negative (Negative) Influenza B (RT-PCR) Negative (Negative) RSV (RT-PCR) Negative (Negative) SARS-CoV-2 RNA (RT-PCR) Negative (Negative) Discharge Plan Discharge Clinical Impression: Chills Patient Disposition: Home, Self-Care Condition: Stable Instructions: Antibiotic Form Additional Instructions: Your exam and imaging today are reassuring overall. This is probably a viral illness and should pass on its own. Please take the Motrin for pain and fever control. If you have any new or worsening symptoms please return to the ER for further evaluation. Patient Language: Mozambican Prescriptions: No Action pregabalin 75 mg capsule 75 mg PO BID bisacodyl 5 mg tablet,delayed release (DR/EC) 10 mg PO DAILY bupropion HCl 150 mg tablet sustained-release 12 hr 150 mg PO DAILY clonazepam 0.5 mg tablet 0.5 mg PO BID docusate sodium [Colace] 100 mg capsule 100 mg PO BID cyclobenzaprine 10 mg tablet 10 mg PO TID PRN lidocaine 5 % adhesive patch,medicated 1 patch topical DAILY Rx Instructions: leave on most painful area for up to 12 hrs fluvoxamine 50 mg tablet 150 mg PO DAILY quetiapine 100 mg tablet 200 mg PO BID naproxen 250 mg tablet 250 mg PO Q12H trazodone 50 mg tablet 25 mg PO QHS PRN hydrocodone-acetaminophen 5-325 mg tablet 1 tablet PO BID acetaminophen 650 mg tablet extended release 650 mg PO BID polyethylene glycol 3350 17 gram/dose powder 17 g PO DAILY PRN aspirin [Adult Aspirin EC Low Strength] 81 mg Tablet,Delayed Release (Dr/Ec) 81 mg PO DAILY Follow-up/Referrals: Dajuan,MD Mustapha [Primary Care Provider] - Time of Disposition: 22:34
[2024-09-26] MEDS: HYDROcodone/acetaminophen (*CRX) 5-325 MG TABLET 1 TAB PO (22:29)
== END 2024-09-26 22:55 ==
PROVIDERS: Emergency Medicine; Emergency Provider Physician Assistant; PCP Internal Medicine
DX: R68.83 Chills (without fever) (principal); Z20.822 Contact with and (suspected) exposure to COVID-19; F31.9 Bipolar disorder, unspecified; F17.210 Nicotine dependence, cigarettes, uncomplicated; Z86.19 Personal history of other infectious and parasitic diseases; Z87.442 Personal history of urinary calculi; Z86.711 Personal history of pulmonary embolism; Z90.49 Acquired absence of other specified parts of digestive tract; Z79.82 Long term (current) use of aspirin; Z79.899 Other long term (current) drug therapy
CPT/HCPCS: 71045; 87637; 99283; A9270

== ENCOUNTER 2025-05-23 02:23 | Day surgery (SDC) | payer OTHER, SELFPAY ==
[2025-04-12 16:38] VITALS: BMI 35.4
--- OUTSIDE RECORDS SUMMARY | 2025-04-25 03:02 | XMS_ITS | Patient Health Record ---
[facility] [place] Address [address] [address] Care Team Providers Care Tax Staff Accountant Name Role Phone Aida Howe Primary Care Provider Reason For Referral No Information Medications Medication SIG (Take, Route, Frequency, Duration) Notes Start Date End Date Status Melatonin 3 MG 1 capsule in the evening as needed with food Orally Once a day; Duration: 30 days 10/08/2017 Not-Taking Gabapentin 100 1 capsule Orally Thr ee times a day; Duration: 30 Active Ibuprofen 600 MG 1 tablet with food o r milk Orally every 6 hours as needed; Duration: 30 days 12/07/2017 Not-Taking Voltaren 50 MG 1 tablet with food o r milk Orally every 8 hours as needed; Duration: 10 days 10/24/2018 Not-Taking PriLOSEC 40 MG 1 capsule Orally Onc e a day; Duration: 30 days 06/02/2018 Not-Takin g Ibuprofen 600 MG 1 tablet with food o r milk Orally every 6 hours as needed; Duration: 30 days 04/26/2018 Not-Taking Ibuprofen 600 1 tablet with food o r milk Orally every 6 hours as needed; Duration: 22 Not-Taking SEROquel 100 MG 1 tablet Orally Once a day Not-Taking Symbicort 160-4.5 MCG/ACT 2 puffs Inhala tion Twice a day; Duration: 30 days 12/07/2017 Not-Taking Levaquin 500 MG 1 tablet Orally Once a day; Duration: 10 day(s) 09/23/2017 Not-Taking Bactrim DS 800-160 MG 1 tablet Orally Tw ice a day; Duration: 7 days 09/26/2020 Active Protonix 40 MG 1 tablet Orally Once a day; Duration: 30 day(s) 10/08/2017 Not-Taking Levaquin 750 MG 1 tablet Orally Once a day; Duration: 10 day(s) 09/21/2017 Not-Taking Cyclobenzaprine HCl 10 MG 1 tablet Oral every 8 hours as needed; Duration: 30 days Active traMADol HCl 50 MG 1 tablet Orally ever y 6 hrs as needed; Duration: 14 days 09/21/2017 Not-Taking Bactrim DS 800-160 MG 1 tablet Orally Tw ice a day; Duration: 10 day(s) 10/08/2017 Not-Taking HYDROcodone-Acetaminophen 10-325 MG (Schedule II Drug) TK 1 T PO Q 8 H PRN Oral; Duration: 28 Active AirDuo RespiClick 232/14 232-14 MCG/ACT 1 puff Inhalation Twice a day; Duration: 30 days 04/27/2018 Not-Taking AirDuo RespiClick 232/14 232-14 MCG/ACT 1 puff Inhalation Twice a day; Duration: 30 days 04/26/2018 Not-Taking DULoxetine HCl 60 MG TK ONE C PO ONCE D Oral; Duration: 30 Active KlonoPIN 1 MG 1 tablet Orally Once a day Not-Taking Augmentin 875-125 MG 1 tablet Orally mahendra ry 12 hrs; Duration: 10 day(s) 09/30/2020 Active Vitamin D 1000 UNIT 1 tablet Orally Once a day; Duration: 30 day(s) 09/10/2020 Active Gabapentin 100 MG 1 capsule Orally Thr ee times a day; Duration: 30 days Not-Taking dilTIAZem HCl ER Coated Beads 180 mg 1 capsule Oral Once a day; Duration: 30 days Active Macrobid 100 MG 1 capsule Orally mahendra ry 12 hours; Duration: 5 days 08/30/2020 Active ALPRAZolam 0.5 MG (Schedule IV Drug) T K 1 T PO UP TO BID ONLY IF NEEDED FOR PANIC. NEVER USE WITHIN 6 HOURS OF ADDERALL OR NORCO. PLEASE LIMIT USE Oral; Duration: 30 Active Amphetamine-Dextroampheta mine 15 MG (Schedule II Drug) TK 1 T PO TID. NEVER USE WITHIN 6 HOURS OF ALPRAZOLAM/XANAX. Oral; Duration: 30 Active buPROPion HCl ER (XL) 150 MG TK 1 T PO QAM FOR ADHD Oral; Duration: 30 Active QUEtiapine Fumarate 200 MG TK 1/2 T PO HS Oral; Duration: 30 Active Protonix 40 MG 1 tablet Orally Once a day; Duration: 30 day(s) 05/27/2018 Not-Taking Ketorolac Tromethamine 60 MG/2ML 2 mL Intramuscular one time; Duration: 1 dose 12/07/2017 Not-Takin g Doxycycline Monohydrate 100 MG 1 tablet Orally every 12 hrs; Duration: 10 days 12/07/2017 Not-Taking Albuterol 90 MCG/ACT 2 puffs Inhalation every 4-6 hours as needed; Duration: 16 Active Zantac 150 mg 1 tablet Orally Twic e a day; Duration: 30 day(s) 11/09/2017 Not-Taking Albuterol Sulfate 108 (90 Base) MCG/ACT 2 puffs - as covered by insurance Inhalation every 6 hrs as needed; Duration: 30 days 12/07/2017 Not-Taking Ventolin HFA 108 (90 Base) MCG/ACT 2 puffs Inhalation every 6 hours as needed; Duration: 25 Not-Taking ProAir RespiClick 108 (90 Base) MCG/ACT 2 puffs as needed Inhalation every 6 hrs Not-Takin g Xanax 2 MG 1 tablet Orally Twic e a day Not-Taking Iron 325 (65 Fe) MG 1 tablet Orally Once a day; Duration: 30 days 04/28/2018 Not-Takin g Diclofenac Potassium 50 MG 1 tablet Orally three times daily as needed; Duration: 30 Not-Taking Lisinopril 20 MG TAKE 1 TABLET BY WIL TH DAILY; Duration: 30 Active Bactroban 2 % 1 application to affected area Externally Three times a day; Duration: 10 days 12/07/2017 Not-Taking Bactrim DS 800-160 MG 1 tablet Orally Tw ice a day; Duration: 10 day(s) 04/26/2018 Not-Taking Adderall 15 mg 1 tablet in the morn ing Orally three times daily Not-Taking Immunizations Vaccine Route Administration Date Status Comme nts Non VFC Boostrix IM Intramuscular 04/12/2019 Administered Patient tolerated procedure well. Social History Tobacco Use: Social History Observation Description Date Details (start date - stop date) Current Smoker NA - NA Tobacco Use/Smoking Question Answer Notes Are you a current smoker How often do you smoke cigarettes? every day How many cigarettes a day do you smoke? 11-20 How soon after you wake up do you smoke your fir st cigarette? within 5 minutes Alcohol Screen (Audit-C) Question Answer Notes Did you have a drink contain ing alcohol in the past year? Yes How often did you have a dri nk containing alcohol in the past year? Monthly or less (1 point) How many drinks did you have on a typical day when you were drinking in the past year? 3 or 4 drinks (1 point) How often did you have 6 or more drinks on one occasion in the past year? Less than monthly (1 point) Points 3 Interpretation Positive Tobacco use other than smoking: Question Answer Notes Are you an other tobacco user? No DAST Question Answer Notes Total Score: 0 Interpretation: No problems reported PRAPARE Question Answer Notes What is your current housing situation? I do not have housing (staying with others, in a hotel, in a assisted, living outside on the street, on a beach, or in a park) Are you worried about losing your housing? Yes What is the highest level of school that you have finished? High school diploma or GED What is your current work situation? Unemployed and seeking work Problems Problem Type SNOMED Code ICD Code Onset Dates Problem Status W/U Status Risk Notes Problem Body mass index 30.00 to 34.99 (706906529708279) Body mass index (BMI) 31.0-31.9, adult (Z68.31) Active confirmed Problem Essential hypertension (46477296) Essential hypertension (I10) Active confirmed Problem COPD - Chronic obstructive pulmonary disease (81594500) COPD (chronic obstructive pulmonary disease) (J44.9) Active confirmed Problem Vitamin D deficiency (11721874) Vitamin D deficiency (E55.9) Active confirmed Problem Anxiety (06217261) Anxiety (F41.9) Active confi rmed Problem Coronary artery disease (74627712) Coronary artery disease (I25.10) Active confirmed Problem Tobacco dependence (90467769) Tobacco dependence (F17.200) Active confirmed Problem Chronic pain syndrome (567924777) Chronic pain disorder (G89.4) Active confirmed Problem Gastroesophageal reflux disease (484426726) Gastroesophageal reflux disease, esophagitis presence not specified (K21.9) Active confirmed Problem COPD - Chronic obstructive pulmonary disease (13651469) Chronic obstructive pulmonary disease, unspecified COPD type (J44.9) Active confirmed Problem History of non-ST segment elevation myocardial infarction (999774496) History of heart attack (I25.2) Active confirmed Problem Insomnia (961769931) Insomnia, unspecified type (G47.00) Active confirmed Problem Urinary incontinence (330960551) Urinary incontinence, unspecified type (R32) Active confirmed Problem Depressive disorder (disorder) (64791660) Depression, unspecified depression type (F32.9) Active confirmed Problem Sciatica (28673193) Acute bilate ral low back pain with sciatica, sciatica laterality unspecified (M54.40) Active confirmed Plan Of Treatment No Information Insurance Providers Payer Name Payer Address Payer Phone Subscriber Number Group Number Insured Name Patient Relationship to Insured Coverage Start Date Coverage End Date [facility] [address] [place] [address] [id number] Lupillo Elsy Self - patient is the insured 7 [facility] [employer]FS [address] [place] [address] [id number] Lupillo Elsy Self - patient is the insured 8 [facility] Nonbillable [address] [place] [address] [id number] Wesley Elsy Self - patient is the insured 8 [facility] [employer] [facility] [address] [place] [address] [id number] Wesley Elsy Self - patient is the insured 8 Medications Administered Medication Instructions Date of Administration Dosage Notes Ketorolac Tromethamine 15mg Injection 09/21/2017 2 mL Ketorolac Tromethamine 15mg Injection 12/07/2017 Medical (General) History Medical History History ICD Code anxiety depression bipolar degenerative disc disease spinal stenosis Hep C Possible Surgical History Surgery Date(Month/Year) tubal 2 c-sections gallbladder
--- OUTSIDE RECORDS SUMMARY | 2025-04-25 03:02 | XMS_ITS | Patient Health Record ---
Author Organization [facility] Address [address] [place] [address] Care Team Providers Care Band Scroll Saw Operator Name Role Phone Venita Jacome Primary Care Provider Allergies No Known Allergies Reason For Referral No Information Medications Medication SIG (Take, Route, Frequency, Duration) Notes Start Date End Date Status SEROquel XR 400 MG 1 tablet in the even ing Orally Once a day; Duration: 30 days 01/19/2023 Active buPROPion HCl ER (XL) 150 MG 1 tablet in the morning Orally Once a day; Duration: 30 days Active Vistaril 25 MG 1 capsule at bedtime as needed Orally 1 to 2 caps as needed; Duration: 30 days Active SEROquel 400 MG 1 tablet at bedtime Orally Once a day; Duration: 30 day(s) Active fluvoxaMINE Maleate 100 MG 1.5 tablet at bedtime Orally Once a day; Duration: 30 days Active Social History Tobacco Use: Social History Observation Description Date Details (start date - stop date) Current Smoker NA - NA Dont use, Tobacco Use/Smoking Question Answer Notes Are you a current every day smoker Additional Findings: Tobacco User Moderate cigar ette smoker (10-19 cigs/day) Problems Problem Type SNOMED Code ICD Code Onset Dates Problem Status W/U Status Risk Notes Problem Bipolar disorder (99747726) Bipolar disorder, unspecified (F31.9) Active confirmed Problem Attention deficit hyperactivity disorder, 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, predominantly inattentive type (F90.0) Active confirmed Problem Generalized anxiety disorder (01924233) Anxiety, generalized (F41.1) Active confirmed Plan Of Treatment No Information Insurance Providers Payer Name Payer Address Payer Phone Subscriber Number Group Number Insured Name Patient Relationship to Insured Coverage Start Date Coverage End Date [facility] Attn Claims Department [address] [place] [address] [id number] Elsy Wesley Self - patient is the insured 0 [facility] [address] [place] [address] [phone] [id number] Elsy Wesley Self - patient is the insured 3 Medical (General) History Surgical History Surgery Date(Month/Year) c section x2 Hospitalization History Reason Date(Month/Year) heart attack 2017 child x3
--- NOTE | 2025-04-25 09:30 | SUR.PREOP ---
Elsy was canceled today because she did not do the required bowel prep. This patient lives in a facility ([facility] (formerly [facility]3]).
[2025-05-18 15:04] VITALS: BMI 32.2
--- OUTSIDE RECORDS SUMMARY | 2025-05-23 02:43 | XMS_ITS | Patient Health Record ---
[facility] Address [address] [address] Care Team Providers Care Tax Auditor Name Role Phone Aida Howe Primary Care [...] with others, in a hotel, in a group home, living outside on the street, on a [...] Problem Body mass index 30.00 to 34.99 (472419289775755) Body mass index (BMI) 31.0-31.9, adult (Z68.31) Active confirmed Problem Essential hypertension (38231795) Essential hypertension (I10) Active confirmed Problem COPD - Chronic obstructive pulmonary disease (56946030) COPD (chronic obstructive pulmonary disease) (J44.9) Active confirmed Problem Vitamin D deficiency (77315935) Vitamin D deficiency (E55.9) Active confirmed Problem Anxiety (33947453) Anxiety (F41.9) Active confi rmed Problem Coronary artery disease (26722775) Coronary artery disease (I25.10) Active confirmed Problem Tobacco dependence (02668853) Tobacco dependence (F17.200) Active confirmed Problem Chronic pain syndrome (472335388) Chronic pain disorder (G89.4) Active confirmed Problem Gastroesophageal reflux disease (189087181) Gastroesophageal reflux disease, esophagitis presence not specified (K21.9) Active confirmed Problem COPD - Chronic obstructive pulmonary disease (12624171) Chronic obstructive pulmonary disease, unspecified COPD type (J44.9) Active confirmed Problem History of non-ST segment elevation myocardial infarction (889412102) History of heart attack (I25.2) Active confirmed Problem Insomnia (190680783) Insomnia, unspecified type (G47.00) Active confirmed Problem Urinary incontinence (370152046) Urinary incontinence, unspecified type (R32) Active confirmed Problem Depressive disorder (disorder) (70802536) Depression, unspecified depression type (F32.9) Active confirmed Problem Sciatica (77045336) Acute bilate ral low back pain with sciatica, sciatica laterality unspecified (M54.40) Active confirmed Plan Of Treatment No Information Insurance Providers Payer Name Payer Address Payer Phone Subscriber Number Group Number Insured Name Patient Relationship to Insured Coverage Start Date Coverage End Date [facility] [address] [place] [address] [id number] Lupillo Elsy Self - patient is the insured 7 [facility] FFS [address] [place] [address] [id number] Lupillo Elsy Self - patient is the insured 8 [facility] Nonbillable [address] [place] [address] [id number] Wesley Elsy Self - patient is the insured 8 [facility] BARN MANAGER [facility] [address] [place] [address] [id number] Wesley Elsy Self - patient is the insured 8 Medications Administered Medication Instructions Date of Administration Dosage Notes Ketorolac Tromethamine 15mg Injection 09/21/2017 2 mL Ketorolac Tromethamine 15mg Injection 12/07/2017 Medical (General) History Medical History History ICD Code anxiety depression bipolar degenerative disc disease spinal stenosis Hep C Possible Surgical History Surgery Date(Month/Year) gallbladder 2 c-sections tubal
--- OUTSIDE RECORDS SUMMARY | 2025-05-23 02:43 | XMS_ITS | Patient Health Record ---
Author Organization [facility] Address [address] [place] [address] Care Team Providers Care Tile Layer Helper Name Role Phone Venita Jacome Primary Care Provider [phone] Allergies No Known Allergies Reason For Referral [...] W/U Status Risk Notes Problem Bipolar disorder (22381361) Bipolar disorder, unspecified (F31.9) Active confirmed Problem Attention deficit hyperactivity disorder, predominantly inattentive type (01222739) ADHD, predominantly inattentive type (F90.0) Active confirmed Problem Generalized anxiety disorder (19167227) Anxiety, generalized (F41.1) Active confirmed Plan Of Treatment No Information Insurance Providers Payer Name Payer Address Payer Phone Subscriber Number Group Number Insured Name Patient Relationship to Insured Coverage Start Date Coverage End Date [facility] Attn Claims Department [address] [place] [address] [id number] Elsy Wesley Self - patient is the insured 0 [facility] [address] [place] [address] [phone] [id number] Elsy Wesley Self - patient is the insured 3 Medical (General) History Surgical History Surgery Date(Month/Year) c section x2 Hospitalization History Reason Date(Month/Year) heart attack 2017 child x3
[2025-05-23 11:17] VITALS: BP 149/96; PULSE 90; RESP 20; TEMP 36.6; O2SAT 97
--- NOTE | 2025-05-23 11:20 | SUR.PREOP ---
The patient missed to collection container while trying to collect urine test. Dr. Storm aware and okay to skip the urine test at this time.
--- NOTE | 2025-05-23 11:31 | WPDANESEPPF ---
Anes - Initial Pre Proc Eval Procedure: Operation Date: 05/23/25 13:30 Proposed Procedures p EGD & Screening Colonoscopy - Arvind Burns MD Date/Time: 05/23/25 11:31 Surgeon: Arvind Burns MD Pre Op Diagnosis: Dysphagia, unspecified, neoplasm screening Patient Data Age: 55 Gender: F Height: 1.63 m Weight: 88.9 kg Last Vital Signs Temp 36.6 C 05/23/25 11:17 Pulse 90 05/23/25 11:17 Resp 20 05/23/25 11:17 BP 149/96 H 05/23/25 11:17 Pulse Ox 97 05/23/25 11:17 O2 Del Method Room Air 05/23/25 11:17 Allergies Allergy/AdvReac Type Severity Reaction Status Date / Time No Known Allergies Allergy Mild Verified 04/12/25 16:37 Home Medications ?Medication ?Instructions ?Recorded ?Confirmed ?Type aspirin 81 mg tablet,delayed 81 mg PO DAILY 03/19/23 05/23/25 History release acetaminophen 650 mg 650 mg PO Q8H PRN pain 07/29/23 05/18/25 History tablet,extended release bisacodyl 5 mg tablet,delayed 10 mg PO DAILY 07/29/23 05/23/25 History release bupropion HCl 150 mg tablet,12 hr 150 mg PO DAILY 07/29/23 04/12/25 History sustained-release clonazepam 0.5 mg tablet 0.5 mg PO BID 07/29/23 04/12/25 History cyclobenzaprine 10 mg tablet 10 mg PO TID PRN muscle spasm 07/29/23 04/12/25 History docusate sodium 100 mg capsule 100 mg PO BID 07/29/23 05/23/25 History (Colace) fluvoxamine 50 mg tablet 50 mg PO BID 07/29/23 05/23/25 History hydrocodone 5 mg-acetaminophen 325 1 tablet PO Q6H PRN pain 07/29/23 04/12/25 History mg tablet lidocaine 5 % topical patch 1 patch topical DAILY 07/29/23 05/23/25 History naproxen 250 mg tablet 250 mg PO Q12H 07/29/23 04/12/25 History polyethylene glycol 3350 17 17 g PO DAILY PRN constipation 07/29/23 04/12/25 History gram/dose oral powder pregabalin 75 mg capsule 75 mg PO BID 07/29/23 04/12/25 History quetiapine 100 mg tablet 200 mg PO BID 07/29/23 04/12/25 History trazodone 50 mg tablet 75 mg PO QHS 07/29/23 05/23/25 History bupropion HCl 300 mg 24 hr tablet, 300 mg PO DAILY 04/12/25 05/23/25 History extended release buspirone 10 mg tablet 10 mg PO BID 04/12/25 05/23/25 History magnesium citrate (Citroma oral 296 ml PO DAILY PRN constipation 04/12/25 04/12/25 History solution) magnesium hydroxide 400 mg/5 mL 30 ml PO HS PRN constipation 04/12/25 04/12/25 History oral suspension (Milk of Magnesia) meclizine 25 mg tablet 25 mg PO ONCE PRN dizziness 04/12/25 04/12/25 History melatonin 3 mg capsule 3 mg PO HS 04/12/25 05/23/25 History meloxicam 7.5 mg tablet 7.5 mg PO BID 04/12/25 05/23/25 History multivitamin with minerals (DAILY 1 tablet PO DAILY 04/12/25 05/23/25 History VITAMIN FORMULA-MINERALS tablet) nystatin 100,000 unit/gram topical 1 applic topical BID 04/12/25 05/23/25 History powder ondansetron 4 mg disintegrating 4 mg PO Q8H PRN nausea and vomiting 04/12/25 04/12/25 History tablet quetiapine 400 mg tablet 400 mg PO HS 04/12/25 04/12/25 History sodium phosphates 19 gram-7 118 ml RECTAL DAILY PRN 04/12/25 04/12/25 History gram/118 mL enema (Fleet Enema) constipation Patient hx anesthesia problems: none Family hx anesthesia problems: none Results Review: All pre-operative results and documents have been reviewed as part of the pre-operative evaluation. [facility] Past Medical History Medical History Infected decubitus ulcer (~2017) Pulmonary embolism Resulting in cardiac arrest in 2017 Degenerative disc disease Kidney stones Hepatitis C Previously treated Continuous tobacco abuse Methamphetamine abuse Bipolar disorder Surgical History Surgical History Hx of cholecystectomy H/O section X2 Family History Family History Mother , at age 62 Cerebrovascular accident Lung cancer Father , He in his mid 40's GI bleed Sibling Lung cancer, Onset Age: 50 Social History Social History Social History: She has been on disability for her bipolar disorder since 2017. She lives with a friend since 2021. She had 3 children but only raised 1 daughter who is now 32 years old. She is estranged from her only living brother. She has smoked a pack of cigarettes per day since she was 18. She denies any alcohol use. She does snore at methamphetamines every couple of days. She denies any narcotic abuse. Code status: Full code She does not have advanced directives in place. Her daughter would be her surrogate decision maker. Smoking packs per day: 1 Smoking cigarettes per day: 20.0 Years smoked: 35 Smoking pack-years: 35.00 Smoking status: Current every day smoker Alcohol intake: never Substance use: current Substance use type: methamphetamine Do You Feel Safe in your Home?: Yes Lack of Transportation: No Lack of Food: Never True Current Housing: I Have Housing Concerned About Future Housing: No Difficulty Paying Gas/Electric Bills: No Difficulty Paying for Meds: No Currently Unemployed: No Education: High School Diploma/GED Difficulty w/ Childcare or Family Care: No Living arrangements: fpc Spiritual care concerns: No Anes - Eval Final PreProcedure Day of Procedure 05/23/25 11:31 Patient weight: obese Heart: regular rate and rhythm Lungs: clear to auscultation Airway: Mallampati scale class 1 Neurological: alert and oriented Last oral intake: >/= 8 hours ASA classification: III Emergent: no Anesthetic plan: proceed Anesthesia type and monitoring: general GIVS and standard monitoring Results Review: All pre-operative results and documents have been reviewed as part of the pre-operative evaluation. Informed Consent: The patient's anesthetic plan and its attendant risks and benefits were discussed with the patient/family/POA. Questions were solicited and answers provided to the satisfaction of the patient/family/POA.
[2025-05-23] MEDS: LACTATED RINGERS 1,000 ML 150 ML IV CONT (11:39)
[2025-05-23] MEDS: SIMETHICONE ORAL SUSPENSION 20 MG/0.3 ML 30 ML BOTTLE 1.8 ML PO (11:40)
--- NOTE | 2025-05-23 11:46 | P.HP_ITS ---
H&P: HPI History of Present Illness Date/Time: 05/23/25 11:46 Chief Complaint: Dysphagia- family history of colon cancer-history of colon polyps Narrative: this patient has been suffering from intermittent dysphagia especially with bread and steak for several months. She never had an EGD. There is no unintentional weight loss or heartburn. In addition he is also being referred for colonoscopy due to a family history of colorectal cancer. Her father had when was in his 30s. The patient had a few colonoscopies, the last 1 more than 5 years ago with the presence of polyps. Review of Systems Review of Systems: All systems reviewed & are unremarkable except as noted in HPI and below PMFSH Past Medical History Medical History Infected decubitus ulcer (~2017) Pulmonary embolism Resulting in cardiac arrest in 2017 Degenerative disc disease Kidney stones Hepatitis C Previously treated Continuous tobacco abuse Methamphetamine abuse Bipolar disorder Surgical History Surgical History Hx of cholecystectomy H/O section X2 Family History Family History Mother , at age 62 Cerebrovascular accident Lung cancer Father , He in his mid 40's GI bleed Sibling Lung cancer, Onset Age: 50 Social History Social History Social History: She has been on disability for her bipolar disorder since 2018. She lives with a friend since 2021. She had 3 children but only raised 1 daughter who is now 32 years old. She is estranged from her only living brother. She has smoked a pack of cigarettes per day since she was 18. She denies any alcohol use. She does snore at methamphetamines every couple of days. She denies any narcotic abuse. Code status: Full code She does not have advanced directives in place. Her daughter would be her surrogate decision maker. Smoking packs per day: 1 Smoking cigarettes per day: 20.0 Years smoked: 35 Smoking pack-years: 35.00 Smoking status: Current every day smoker Alcohol intake: never Substance use: current Substance use type: methamphetamine Do You Feel Safe in your Home?: Yes Lack of Transportation: No Lack of Food: Never True Current Housing: I Have Housing Concerned About Future Housing: No Difficulty Paying Gas/Electric Bills: No Difficulty Paying for Meds: No Currently Unemployed: No Education: High School Diploma/GED Difficulty w/ Childcare or Family Care: No Living arrangements: longterm Spiritual care concerns: No Meds Home Medications and Allergies Home Medications ?Medication ?Instructions ?Recorded ?Confirmed ?Type aspirin 81 mg tablet,delayed 81 mg PO DAILY 03/19/23 05/23/25 History release acetaminophen 650 mg 650 mg PO Q8H PRN pain 07/29/23 05/18/25 History tablet,extended release bisacodyl 5 mg tablet,delayed 10 mg PO DAILY 07/29/23 05/23/25 History release bupropion HCl 150 mg tablet,12 hr 150 mg PO DAILY 07/29/23 04/12/25 History sustained-release clonazepam 0.5 mg tablet 0.5 mg PO BID 07/29/23 04/12/25 History cyclobenzaprine 10 mg tablet 10 mg PO TID PRN muscle spasm 07/29/23 04/12/25 History docusate sodium 100 mg capsule 100 mg PO BID 07/29/23 05/23/25 History (Colace) fluvoxamine 50 mg tablet 50 mg PO BID 07/29/23 05/23/25 History hydrocodone 5 mg-acetaminophen 325 1 tablet PO Q6H PRN pain 07/29/23 04/12/25 History mg tablet lidocaine 5 % topical patch 1 patch topical DAILY 07/29/23 05/23/25 History naproxen 250 mg tablet 250 mg PO Q12H 07/29/23 04/12/25 History polyethylene glycol 3350 17 17 g PO DAILY PRN constipation 07/29/23 04/12/25 History gram/dose oral powder pregabalin 75 mg capsule 75 mg PO BID 07/29/23 04/12/25 History quetiapine 100 mg tablet 200 mg PO BID 07/29/23 04/12/25 History trazodone 50 mg tablet 75 mg PO QHS 07/29/23 05/23/25 History bupropion HCl 300 mg 24 hr tablet, 300 mg PO DAILY 04/12/25 05/23/25 History extended release buspirone 10 mg tablet 10 mg PO BID 04/12/25 05/23/25 History magnesium citrate (Citroma oral 296 ml PO DAILY PRN constipation 04/12/25 04/12/25 History solution) magnesium hydroxide 400 mg/5 mL 30 ml PO HS PRN constipation 04/12/25 04/12/25 History oral suspension (Milk of Magnesia) meclizine 25 mg tablet 25 mg PO ONCE PRN dizziness 04/12/25 04/12/25 History melatonin 3 mg capsule 3 mg PO HS 04/12/25 05/23/25 History meloxicam 7.5 mg tablet 7.5 mg PO BID 04/12/25 05/23/25 History multivitamin with minerals (DAILY 1 tablet PO DAILY 04/12/25 05/23/25 History VITAMIN FORMULA-MINERALS tablet) nystatin 100,000 unit/gram topical 1 applic topical BID 04/12/25 05/23/25 History powder ondansetron 4 mg disintegrating 4 mg PO Q8H PRN nausea and vomiting 04/12/25 04/12/25 History tablet quetiapine 400 mg tablet 400 mg PO HS 04/12/25 04/12/25 History sodium phosphates 19 gram-7 118 ml RECTAL DAILY PRN 04/12/25 04/12/25 History gram/118 mL enema (Fleet Enema) constipation Allergies Allergy/AdvReac Type Severity Reaction Status Date / Time No Known Allergies Allergy Mild Verified 04/12/25 16:37 Vital Signs Vital Signs - 24 hr 05/23/25 11:17 Temperature 97.8 F Pulse Rate 90 Respiratory Rate 20 Blood Pressure 149/96 H Pulse Oximetry 97 Oxygen Delivery Room Air Exam Const: General: cooperative and healthy appearing Resp: Effort & Inspection: normal respiratory effort and able to speak in complete sentences Auscultation: clear to auscultation bilaterally Cardio: Rate: regular rate Rhythm: regular rhythm GI: Inspection: normal to inspection GI Palp: No No hepatosplenomegaly present Auscultation: normal bowel sounds Rectal Exam: deferred Skin: General skin exam: normal color Psych: Appearance: grossly normal Mental Status: mental status grossly normal Assessment and Plan Assessment and plan (1) Dysphagia: Code(s): R13.10 - Dysphagia, unspecified Status: Acute Assessment and Plan: The patient is deemed a good candidate for the procedure. Consent signed. Will proceed. (2) Family history of colorectal cancer: Code(s): Z80.0 - Family history of malignant neoplasm of digestive organs Status: Acute
--- NOTE | 2025-05-23 12:05 | S_PTH ---
PATIENT: Elsy Wesley LOC: [facility] U#:[id number] AGE/SX: 55/F ROOM: RE05/23/[address]: Arvind Burns MD : 1970 BED: DIS: 05/23/2025 SPEC #: [id number] RECD: 05/23/25 13:30 STATUS: BRAYAN REAaliyah #: [id number] KAYLAH: 05/23/25 12:[address]: Arvind Burns DEPT: [facility] Surgical RECD BY: Angelica Abarca Tissues: A - Gastric Biopsy B - Gastric Biopsy C - Gastric Biopsy D - Esophageal Biopsy E - Colon Polypectomy Procedures: Hematoxylin and Eosin Stain Gross and Microscopic Level 4
--- NOTE | 2025-05-23 12:15 | SUR.OPER ---
EGD: end 1203, COLON: start 1212
[2025-05-23 12:32] VITALS: BP 98/66; PULSE 80; RESP 20; O2SAT 95
[2025-05-23 12:42] VITALS: BP 121/80; PULSE 80; RESP 20; O2SAT 100
[2025-05-23 12:52] VITALS: BP 136/83; PULSE 72; RESP 18; O2SAT 99
== END 2025-05-23 13:19 | disposition home or self-care (01) ==
PROVIDERS: Visit Provider Internal Medicine Gastroenterology
PROC: 0DJ08ZZ Inspection of Upper Intestinal Tract, Via Natural or Artificial Opening Endoscopic (ICD-10-PCS; CPT 45378; principal; 2025-05-23 13:30)
DX: Z12.11 Encounter for screening for malignant neoplasm of colon (principal); D12.2 Benign neoplasm of ascending colon; K21.00 Gastro-esophageal reflux disease with esophagitis, without bleeding; K31.89 Other diseases of stomach and duodenum; K25.3 Acute gastric ulcer without hemorrhage or perforation; F31.9 Bipolar disorder, unspecified; M19.90 Unspecified osteoarthritis, unspecified site; F17.210 Nicotine dependence, cigarettes, uncomplicated; E66.9 Obesity, unspecified; Z68.33 Body mass index [BMI] 33.0-33.9, adult; Z79.82 Long term (current) use of aspirin; Z79.891 Long term (current) use of opiate analgesic; Z79.1 Long term (current) use of non-steroidal anti-inflammatories (NSAID); Z98.890 Other specified postprocedural states; Z90.49 Acquired absence of other specified parts of digestive tract; Z86.0100 Personal history of colon polyps, unspecified; Z86.711 Personal history of pulmonary embolism; Z87.442 Personal history of urinary calculi; Z80.0 Family history of malignant neoplasm of digestive organs; Z80.1 Family history of malignant neoplasm of trachea, bronchus and lung
CPT/HCPCS: 43239; 45385; 88305; J2704; J7120

== ENCOUNTER 2025-08-27 13:45 | Outpatient (CLI) | payer OTHER, SELFPAY ==
--- NOTE | ~2025-08-27 | CT_ITS ---
EXAM/PROCEDURE: CT hip RT wo con HISTORY: M25.551 - Pain in right hip COMPARISON: Plain films from August 06, 2025 TECHNIQUE: Right hip CT FINDINGS: No fracture subluxation or dislocation. Severe osteoarthritic degenerative changes in the right hip with obliteration of the joint space, and extensive subchondral cystic changes. Prominent spur formation also present along the lateral and medial aspects of the hip joint. No large joint effusion seen. No obvious mass or drainable fluid collection. IMPRESSION: Severe osteoarthritic degenerative changes of the right hip. Reviewed, dictated and finalized at location A. LOOP MAKER
--- NOTE | ~2025-08-27 | US_ITS ---
EXAMINATION: US venous doppler [facility], 08/27/2025 14:01 FELT FINISHING SUPERVISOR HISTORY: Z86.718 - Personal history of other venous thrombosis and... COMPARISON: None Technique: Holman-scale and color Doppler images were attempted of the lower saphenofemoral junction, common femoral vein,superficial femoral vein, proximal deep femoral vein, proximal deep femoral vein, popliteal vein and posterior tibial veins. Findings: Deep Venous System:Normal flow, augmentation and compressibility. No echogenic thrombus identified. Superficial Venous SystemNo superficial thrombophlebitis. Soft tissues: Soft tissues are unremarkable. Impression: Negative for DVT. Reviewed, dictated and finalized at location P. FINISHING SUPERVISOR Impression: Negative for DVT.
--- NOTE | 2025-08-27 13:49 | ECG_ITS ---
Test Date: 2025-08-27 15:27:55 Measurements Intervals [place] Rate: 75 P: 17 MN: 131 QRS: 7 QRSD: 93 T: 13 QT: 415 QTc: 464 Interpretive Statements SINUS RHYTHM LOW QRS VOLTAGE IN PRECORDIAL LEADS Electronically Signed On 08-27-2025 20:02:46 BLOCKLAYER by Prince Bach D.O
[2025-08-27 16:05] LABS: Hematocrit 39.7 % (37.0-47.0); Hemoglobin 12.8 g/dL (12.0-15.0); Immature Granulocyte Percent A 0.3 % (0-0.5); Lymphocytes Absolute Auto 3.01 K/mm3 (0.9-3.2); Mean Corpuscular HGB Conc 32.2 g/dl (32-36); Mean Corpuscular Hemoglobin 29.7 pg (26-34); Mean Corpuscular Volume 92.1 fl (80-100); Nucleated Red Blood Cells Absolute Auto 0.000 K/mm3 (0.0-0.012); Nucleated Red Blood Cells Perc 0.0 % (0.0-0.2); Platelet Count Result 272 k/mm3 (150-375); Red Blood Count 4.31 M/mm3 (4.2-5.4); White Blood Count 6.7 K/mm3 (4.5-10.0)
[2025-08-27 16:15] LABS: Add Urine Microscopic? YES; Appearance Urine Clear (Clear); Glucose Urine UA Negative (Negative); Leukocyte Esterase Ur 1+ LEU/UL (Negative); Nitrate Urine Negative (Negative); Non Pathogenic Casts 0-2; Specific Grav Ur 1.009 (1.001-1.035)
[2025-08-27 16:20] LABS: Anion Gap 8 mmol/L (4-12); Blood Urea Nitrogen 11 mg/dL (7-17); Calcium 9.3 mg/dL (8.4-10.2); Carbon Dioxide 28 mmol/L (22-30); Chloride 102 mmol/L (98-107); Estimated Glomerular Filt Rate > 60; Glucose 92 mg/dL (65-110); Potassium 4.7 mmol/L (3.4-5.0); Sodium 138 mmol/L (137-145)
== END 2025-08-27 13:46 | disposition home or self-care (01) ==
PROVIDERS: Visit Provider Nurse Practitioner Family
DX: M16.11 Unilateral primary osteoarthritis, right hip (principal); R53.83 Other fatigue; F17.200 Nicotine dependence, unspecified, uncomplicated; Z86.718 Personal history of other venous thrombosis and embolism
CPT/HCPCS: 36415; 73700; 80048; 81001; 85025; 87086; 87186; 93005; 93970